=== PATIENT | female | born 2000 | race Caucasian/White ===

== ENCOUNTER 2025-01-22 00:07 | Inpatient (IN) | payer BC, OTHER ==
[~2025-01-22] VITALS: Ht 170.2 cm; Wt 110.2 kg
[~2025-01-22 00:07] MED LIST: CALCIUM CARBONATE 500 MG CHEW PO PRN; LACTATED RINGER'S 1,000 ML IV PRN; LACTATED RINGER'S 1,000 ML IV SCH; MAGNESIUM HYDROXIDE/AL HYDROX 30 ML CUP PO PRN; miSOPROStoL 25 MCG TAB PV SCH
[2025-01-22] MEDS ORDERED: OXYTOCIN/0.9 % SODIUM CHLORIDE 30 UNITS/500 ML BAG IV SCH (00:15)
[2025-01-22 00:44] VITALS: BP 120/77
[2025-01-22 00:53] LABS: HEMATOCRIT 33.7 % (35.0-50.0); HEMOGLOBIN 11.5 g/dL (12.0-18.0); MCH 28.6 (27-36); MCHC 34.1 g/dl (30-36); MCV 83.7 fl (81-99); RBC 4.03 M/ul (4.3-5.7); RDW 13.6 (10.5-15.0)
[2025-01-22 02:07] LABS: ABO O; ANTIBODY SCREEN NEGATIVE; RH POSITIVE
[2025-01-22] MEDS ORDERED: OXYTOCIN/0.9 % SODIUM CHLORIDE 500 ML IV SCH (17:45)
[2025-01-22 18:18] LABS: HEMATOCRIT 34.1 % (35.0-50.0); HEMOGLOBIN 11.5 g/dL (12.0-18.0); MCH 28.3 (27-36); MCHC 33.9 g/dl (30-36); MCV 83.5 fl (81-99); RBC 4.08 M/ul (4.3-5.7); RDW 13.6 (10.5-15.0)
[2025-01-22 18:40] LABS: ALBUMIN 2.3 g/dL (3.4-5.0); ALBUMIN/GLOBULIN RATIO 0.56 (1.1-2.4); ANION GAP 10.8 (7-21); BILIRUBIN, TOTAL 0.1 mg/dL (0.2-1.0); BUN/CREATININE RATIO 10.52 (6.0-28.6); CALCIUM 8.9 mg/dL (8.5-10.1); CREATININE, SERUM 0.57 mg/dL (0.55-1.02); POTASSIUM 3.8 mmol/L (3.5-5.1); PROTEIN, TOTAL 6.4 g/dL (6.4-8.2)
[2025-01-22 19:09] LABS: CREATININE, RANDOM URINE 61.67 mg/dL (NOT ESTABLISHED); PROTEIN/CREATININE RATIO 0.17 mg/mg (0.010-0.107)
[2025-01-22 19:19] LABS: AMPHETAMINES, URINE NEGATIVE (NEGATIVE); BARBITURATES, URINE NEGATIVE (NEGATIVE); BENZODIAZEPINE, URINE NEGATIVE (NEGATIVE); BUPRENORPHINE, URINE NEGATIVE (NEGATIVE); CANNABINOID, URINE NEGATIVE (NEGATIVE); COCAINE, URINE NEGATIVE (NEGATIVE); ECSTASY, URINE NEGATIVE (NEGATIVE); FENTANYL, URINE NEGATIVE (NEGATIVE); METHADONE, URINE NEGATIVE (NEGATIVE); OPIATES, URINE NEGATIVE (NEGATIVE); OXYCODONE, URINE NEGATIVE (NEGATIVE); PHENCYCLIDINE, URINE NEGATIVE (NEGATIVE)
[2025-01-22] MEDS ORDERED: ACETAMINOPHEN 500 MG TAB PO ONE (20:30)
[2025-01-23] MEDS ORDERED: miSOPROStoL 100 MCG TAB PO SCH (04:30)
[2025-01-23] MEDS ORDERED: miSOPROStoL 25 MCG TAB PO SCH (05:00)
[2025-01-23] MEDS ORDERED: LIDOCAINE HCL 2% 5 ML SDV ONE ×2 (22:26→23:34)
[2025-01-23] MEDS ORDERED: dexmedeTOMIDine HCl 200 MCG/2 ML VIAL ONE (22:26)
[2025-01-23] MEDS ORDERED: ROPIVACAINE 0.2% 200 ML BAG ONE (22:27)
[2025-01-23] MEDS ORDERED: ondansetron HCL 4 MG/2 ML VIAL ONE (22:27)
[2025-01-23] MEDS ORDERED: BUPIVACAINE HCL 0.25% 10 ML SDV INJ ONE (22:27)
[2025-01-23] MEDS ORDERED: ePHEDrine sulfate 5 MG/ML SYRINGE IV PRN (23:30)
[2025-01-23] MEDS ORDERED: ROPIVACAINE 0.2% 200 ML BAG EPIDURAL SCH ×2 (23:30)
[2025-01-23] MEDS ORDERED: LACTATED RINGER'S 2,000 ML IV ONE (23:30)
[2025-01-23] MEDS ORDERED: LACTATED RINGER'S 500 ML IV PRN (23:30)
[2025-01-24] MEDS ORDERED: OXYTOCIN/0.9 % SODIUM CHLORIDE 500 ML IV SCH ×3 (00:30→17:45)
[2025-01-24] MEDS ORDERED: ondansetron HCL 4 MG/2 ML VIAL IV PRN (06:15)
[2025-01-24] MEDS ORDERED: ACETAMINOPHEN 500 MG TAB PO ONE (14:00)
[2025-01-24 15:10] LABS: IS CROSSMATCH COMPATIBLE
[2025-01-24 15:11] LABS: ABO O; RH POSITIVE
[2025-01-24] MEDS ORDERED: LIDOCAINE 2% W/ EPI 1:200,000 20 ML SDV ONE (15:55)
[2025-01-24] MEDS ORDERED: TRANEXAMIC ACID IN NACL,ISO-OS 0 ML IV ONE (16:59)
[2025-01-24] MEDS ORDERED: CALCIUM CARBONATE 500 MG CHEW PO PRN (17:45)
[2025-01-24] MEDS ORDERED: MAGNESIUM HYDROXIDE 30 ML UDC PO PRN (17:45)
[2025-01-24] MEDS ORDERED: IBUPROFEN 600 MG TAB PO PRN (17:45)
[2025-01-24] MEDS ORDERED: BENZOCAINE 60 ML AEROSOL TOP PRN (17:45)
[2025-01-24] MEDS ORDERED: WITCH HAZEL/GLYCERIN 1 EA PAD TOP PRN (17:45)
[2025-01-24] MEDS ORDERED: LIDOCAINE 2% VISCOUS 6 ML SYR TOP ONE ×2 (17:45)
[2025-01-24] MEDS ORDERED: ACETAMINOPHEN 325 MG TAB PO PRN (17:45)
[2025-01-24] MEDS ORDERED: HYDROCORTISONE ACETATE 25 MG SUPP PR PRN (17:45)
[2025-01-24] MEDS ORDERED: MAGNESIUM HYDROXIDE/AL HYDROX 30 ML CUP PO PRN (17:45)
[2025-01-24] MEDS ORDERED: METOCLOPRAMIDE HCL 10 MG/2 ML SDV IV ONE (18:15)
[2025-01-24] MEDS ORDERED: PROCHLORPERAZINE EDISYLATE 10 MG/2 ML VIAL IV ONE (18:15)
[2025-01-24] MEDS ORDERED: SENNOSIDES/DOCUSATE 1 EA TAB PO SCH (21:00)
== END 2025-01-26 11:25 | disposition home or self-care (01) | DRG 807 ==
LOC: FBC 00:07
PROVIDERS: Advanced Practice Midwife; ADMIT Obstetrics & Gynecology; ATTEND Obstetrics & Gynecology
PROC: 10E0XZZ Delivery of Products of Conception, External Approach (ICD-10-PCS; principal; 2025-01-24)
PROC: 0KQM0ZZ Repair Perineum Muscle, Open Approach (ICD-10-PCS; 2025-01-24)
PROC: 10907ZC Drainage of Amniotic Fluid, Therapeutic from Products of Conception, Via Natural or Artificial Opening (ICD-10-PCS; 2025-01-24)
PROC: 3E0R3BZ Introduction of Anesthetic Agent into Spinal Canal, Percutaneous Approach (ICD-10-PCS; 2025-01-24)
PROC: 00HU33Z Insertion of Infusion Device into Spinal Canal, Percutaneous Approach (ICD-10-PCS; 2025-01-24)
PROC: 0U7C7ZZ Dilation of Cervix, Via Natural or Artificial Opening (ICD-10-PCS; 2025-01-24)
DX: O14.94 Unspecified pre-eclampsia, complicating childbirth (principal); Z37.0 Single live birth; Z3A.38 38 weeks gestation of pregnancy; O70.1 Second degree perineal laceration during delivery; O69.81X0 Labor and delivery complicated by cord around neck, without compression, not applicable or unspecified; Z79.82 Long term (current) use of aspirin; Z79.899 Other long term (current) drug therapy; Z87.891 Personal history of nicotine dependence
CPT/HCPCS: 01960; 36415; 80053; 80307; 82570; 84156; 84550; 85027; 86850; 86900; 86901; 86922; A9270; J0780; J2003; J2405; J2795; J7121